=== PATIENT | female | born 1930 | race Caucasian/White ===

== ENCOUNTER → 2017-04-03 | Outpatient (CLI) | payer MEDICARE, BC ==
[~2017-04-03] MED LIST: ARICEPT DPS5 MG PO; ASA CHILDREN'S81 MG PO; DITROPAN XL5 MG PO; DULCOLAX-DPS10 MG PR; LOVENOX DP30 MG/0.3 SQ; MIRALAX PACKET17 GM PO; NORCO 5-325 TA1 EACH PO; SENOKOT S1 TAB PO; SYNTHROID DPS0.1 MG PO; TYLENOL DPS325 MG PO
== END | disposition home or self-care (01) ==
LOC: RAD.S 08:17
DX: R94.5 Abnormal results of liver function studies (principal); K80.20 Calculus of gallbladder without cholecystitis without obstruction